=== PATIENT | female | born 1980 | race Caucasian/White ===

== ENCOUNTER → 2016-05-17 08:14 | Outpatient (CLI) | payer OTHER | END | disposition home or self-care (01) | LOC: D.CT 08:14 | DX: G44.1 Vascular headache, not elsewhere classified (principal); R51 Headache; E11.9 Type 2 diabetes mellitus without complications ==

== ENCOUNTER 2018-03-11 18:57 | Emergency (ER) | payer OTHER ==
[~2018-03-11] VITALS: Ht 167.6 cm; Wt 65.8 kg
[2018-03-11 19:03] VITALS: Ht 167.6 cm; Wt 65.8 kg
[2018-03-11] MEDS ORDERED: HUMALOG 30100 UNITS/ (19:05)
[2018-03-11] MEDS ORDERED: FOLBIC RF TABL1 EACH (19:05)
[2018-03-11] MEDS ORDERED: CELEXA10 MG (19:05)
[2018-03-11 19:30] LABS: BASOPHILS 0.1 % (0-2); EOSINOPHILS 1.6 % (0-7); HEMATOCRIT 37.8 % (36.0-48.0); HEMOGLOBIN 13.6 g/dL (12-16); IMMATURE GRANULOCYTES 0.1 % (0-5); LYMPHOCYTES 42.6 % (15-50); MCH 32.9 pg (26.0-34.0); MCV 91.3 fL (80.0-100.0); MEAN PLATELET VOLUME 10.8 fL (7.4-10.4); MONOCYTES 5.8 % (2-11); NEUTROPHILS 49.8 % (40-80); PLATELET COUNT 269 10x3/uL (130-400); RBC 4.14 10x6/uL (4.00-5.40); RDW 11.9 % (11.5-14.5); WBC 6.7 10x3/uL (4.8-10.8)
[2018-03-11 19:41] LABS: APPEARANCE CLEAR (CLEAR); BILIRUBIN NEGATIVE (NEGATIVE); COLOR YELLOW (YELLOW); GLUCOSE NEGATIVE (NEGATIVE); KETONE NEGATIVE (NEGATIVE); NITRITE NEGATIVE (NEGATIVE); PROTEIN TRACE mg/dL (NEGATIVE); UROBILINOGEN NORMAL (NORMAL)
[2018-03-11 19:46] LABS: ALBUMIN 3.9 g/dL (3.4-5.0); ALKALINE PHOSPHATASE 49 U/L (46-116); ALT (SGPT) 20 U/L (10-68); BACTERIA FEW /hpf (NONE SEEN); BILIRUBIN - TOTAL 0.25 mg/dL (0.2-1.3); CALC OSMOLALITY 284 mosm/kg (275-300); CALCIUM 9.2 mg/dL (8.5-10.1); CARBON DIOXIDE 27.2 mmol/L (21.0-32.0); CHLORIDE - SERUM 105 mmol/L (98-107); CREATININE - SERUM 0.9 mg/dL (0.6-1.3); GLUCOSE 143 mg/dL (74-106); MUCUS <1+ /lpf (NONE SEEN); POTASSIUM - SERUM 3.6 mmol/L (3.5-5.1); PROTEIN - SERUM 7.7 g/dL (6.4-8.2); RED CELLS - URINE 0-5 /hpf (0-5); SODIUM 141 mmol/L (136-145); UREA NITROGEN 17 mg/dL (7-18); eGFR NON AFRICAN AMERICAN 74 mL/min (90-120)
[2018-03-11 19:47] LABS: HCG URINE NEGATIVE (NEGATIVE)
[2018-03-11 19:49] LABS: AMYLASE - SERUM 35 U/L (25-115); LIPASE 140 U/L (73-393)
[2018-03-11 19:51] LABS: TROPONIN-I < 0.017 ng/mL (0.000-0.060)
[2018-03-11 21:19] VITALS: BP 121/78
== END 2018-03-11 21:16 | disposition home or self-care (01) ==
LOC: D.ER 18:57
PROVIDERS: Family Medicine
DX: R10.30 Lower abdominal pain, unspecified (principal); E11.9 Type 2 diabetes mellitus without complications